=== PATIENT | female | born 2000 | race African-American/Black ===

== ENCOUNTER 2022-04-09 16:14 | Emergency (ER) | payer MEDICAID, SELFPAY ==
[2022-04-09 16:19] VITALS: BP 95/65; PULSE 70; RESP 17; TEMP 36.3; O2SAT 100; BMI 26.6
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
[2022-04-09 17:43] LABS: hCG Titer Quant., Serum 30688 mIU/mL (1-3)
--- NOTE | 2022-04-09 17:54 | US_ITS ---
We are attempting to reach an attending provider to discuss findings. An addendum with communication details will be sent when the communication is complete. STUDY: FIRST TRIMESTER OBSTETRICAL ULTRASOUND REASON FOR EXAM: Female, 21 years old bleeding LMP: 02/12/2022 TECHNIQUE: Transabdominal TECHNICAL QUALITY: Adequate. PRIOR ULTRASOUND: None. FINDINGS: There is visualization of a single gestational sac in a normal intrauterine position. The mean sac diameter (MSD) measures 23 mm, indicating an estimated gestational age (EGA) of 7 weeks, 2 days. The gestational sac shape is within normal limits. There is no demonstrated yolk sac.. The placenta is non-visualized. There is visualization of an embryo with no cardiac activity, consistent with intrauterine demise. The crown-rump length (CRL) measures 16 mm, indicating an estimated gestational age (EGA) of 7 weeks, 6 days.. The estimated gestation age (EGA) by LMP is 8 weeks, 0 days. The estimated date of delivery (ZINA) by LMP is 11/19/2022. The estimated gestation age (EGA) by US is 7 weeks, 4 days. The estimated date of delivery (ZINA) by US is 11/22/2022. The uterus measures 9.3 x 7.8 x 6.7 cm. There is no demonstrated uterine fibroid. The cervix is closed. The right ovary measures 2.7 x 6.7 x 2.5 cm. There is no right ovarian cyst. There is no visualized right adnexal mass or complex lesion. The left ovary measures 4.0 x 2.0 x 2.0 cm. There is no left ovarian cyst. There is no visualized left adnexal mass or complex lesion. There is no fluid in the cul de sac. US/Init OB < 14Wks US IMPRESSION: Intrauterine demise of estimated gestational age 7 weeks 4 days as described above. Electronically Signed: Mick Swenson MD at 19:09 EDT ,
[2022-04-09 18:47] VITALS: BP 104/57; PULSE 65; RESP 16; O2SAT 100
[2022-04-09 20:22] VITALS: BP 98/61; PULSE 60; RESP 18; O2SAT 97
== END 2022-04-09 20:22 | disposition home or self-care (01) ==
PROVIDERS: Emergency Provider Emergency Medicine; Visit Provider Emergency Medicine
DX: O03.4 Incomplete spontaneous abortion without complication (principal); O99.331 Smoking (tobacco) complicating pregnancy, first trimester; O02.1 Missed abortion
CPT/HCPCS: 76801; 84702; 86900; 86901; 99282